=== PATIENT | female | born 1950 | race Hispanic/Latino ===

== ENCOUNTER 2016-12-03 10:46 | Emergency (ER) | payer MEDICARE, OTHER ==
[2016-12-03] MEDS ORDERED: MOTRIN PO ONE (11:48)
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
[2016-12-03] MEDS ORDERED: NORCO 5/325 PO ONE (13:13)
[2016-12-03 13:35] VITALS: BP 142/82
== END 2016-12-03 13:34 | disposition home or self-care (01) ==
LOC: ED 10:46
DX: S42.211A Unspecified displaced fracture of surgical neck of right humerus, initial encounter for closed fracture (principal); I10 Essential (primary) hypertension; F17.200 Nicotine dependence, unspecified, uncomplicated; V49.59XA Passenger injured in collision with other motor vehicles in traffic accident, initial encounter; Y92.488 Other paved roadways as the place of occurrence of the external cause; Y93.89 Activity, other specified; Y99.8 Other external cause status
CPT/HCPCS: 99284